=== PATIENT | female | born 1955 | race Caucasian/White ===

== ENCOUNTER 2018-10-19 09:37 | Outpatient (CLI) | payer MEDICARE, MEDICAID ==
--- NOTE | 2018-10-19 10:11 | RAD ---
FXR Hand Rt 3 View STANDARD History: [Pain] Comparison: None. Findings: No acute fracture or malalignment. Mild vascular calcifications. Mild degenerative disease of the thumb carpometacarpal joint. Mild narrowing of the second and third metacarpal phalangeal join ts. Impression: Chronic findings. No acute abnormality.
--- NOTE | 2018-10-19 10:15 | RAD ---
F4 views cervical spine. HISTORY: Hand pain and neck pain. AP, lateral, open-mouth odontoid and swimmer's views cervical spine obtained. Images demonstrate disc space height loss with anterior and posterior osteophytes at C4-5, C5-6 and C 6-7. This is compatible with changes of spondylosis. No evidence of acute cervical spine fracture seen. The odontoid is unremarkable. IMPRESSION: C4-5, C5-6 and C6-C7 changes of spondylosis.
== END 2018-10-19 09:38 | disposition home or self-care (01) ==
LOC: NAV RAD 09:37
PROVIDERS: ATTEND Family Medicine
DX: M79.641 Pain in right hand (principal); M47.812 Spondylosis without myelopathy or radiculopathy, cervical region
CPT/HCPCS: 72040

== ENCOUNTER 2020-07-29 12:09 | Emergency (ER) | payer MEDICARE, MEDICAID | END 2020-07-29 13:00 | disposition left against medical advice (07) | LOC: NAV ERS 12:09 | DX: M79.662 Pain in left lower leg (principal); M79.661 Pain in right lower leg; I11.0 Hypertensive heart disease with heart failure; I50.9 Heart failure, unspecified; E11.9 Type 2 diabetes mellitus without complications; E78.00 Pure hypercholesterolemia, unspecified; Z79.4 Long term (current) use of insulin | CPT/HCPCS: 99283 ==